=== PATIENT | female | born 1975 | race Caucasian/White ===

== ENCOUNTER 2018-09-18 11:19 | Outpatient (CLI) | payer BC ==
[2018-09-18 12:15] LABS: eGFR (Non-African) > 60
== END 2018-09-18 11:20 ==
LOC: RT 11:19
PROVIDERS: ATTEND Family Medicine
DX: R00.2 Palpitations (principal); E78.5 Hyperlipidemia, unspecified
CPT/HCPCS: 36415; 80053; 80061; 85379